=== PATIENT | female | born 1965 | race Caucasian/White ===

== ENCOUNTER 2018-01-04 16:27 | Emergency (ER) | payer SELFPAY ==
[2018-01-04] MEDS ORDERED: IBUPROFEN 100 MG/5 ML SUSP PO ONE (16:53)
--- NOTE | 2018-01-04 17:35 | Emergency Department Record ---
History of Present Illness - General Chief complaint: Pain Stated complaint: RT SIDE RIB PAIN Time Seen by Provider: 01/04/18 16:41 Source: Patient Mode of Arrival: Ambulatory Limitations: No limitations - History of Present Illness Initial comments: Pt with pain to right lower chest wall. No trauma or injury. Present for 3 days started toward the back no moving anterior. No fever, cough, skin lesion. No cough or TOMASZ, no hemoptysis, no left chest pains. No Hormone treatments, no cancer hx, recetn car trip of 300 miles with multiple stoprs thru trip with kids and dog. No hx DVT or clots. Pain is sharp and worse with motion, deep inspiration, and lifting left arm. No AP or diet intolerance. Onset/Timin -: Days(s) Location: Right History of Same: No Radiation: Proximal Severity scale (1-10): 5 Quality: Aching, Sharp Consistency: Intermittent Worsens with: Other Associated Symptoms: Denies other symptoms - Related Data Previous Rx's Medication Instructions Recorded Hydrocodone/Acetaminophen [Lortab 5 ml PO Q6HR 4 Days #120 ml 01/04/18 10mg/300mg/15ml] Allergies Allergy/AdvReac Type Severity Reaction Status Date / Time No Known Drug Allergies Allergy Verified 01/04/18 16:33 Travel Screening - Travel/Exposure Within Last 30 Days Have you traveled within the last 30 days?: No Review of Systems Constitutional: Denies: Chills, Fever, Weakness Eyes: Denies: Photophobia, Vision change ENT: Denies: Congestion, Ear pain Respiratory: Denies: Cough, Dyspnea, Wheezes Cardiovascular: Reports: As per HPI. Denies: Arrhythmia, Dyspnea on exertion, Palpitations Endocrine: Denies: Fatigue Gastrointestinal: Denies: Abdominal pain, Nausea, Vomiting Genitourinary: Denies: Abnormal menses Musculoskeletal: Reports: Arthralgia Skin: Denies: Bruising, Rash Neurological: Denies: Abnormal gait, Tremors Psychiatric: Denies: Anxiety Hematological/Lymphatic: Denies: Anemia Past Medical History - SOCIAL HISTORY Smoking Status: Never smoker Alcohol Use: None Drug Use: None - RESPIRATORY Hx Respiratory Disorders: Yes Hx Asthma: Yes - CARDIOVASCULAR Hx Cardio Disorders: No - NEURO Hx Neuro Disorders: No - GI Hx GI Disorders: No - Hx Genitourinary Disorders: No - ENDOCRINE Hx Endocrine Disorders: No - MUSCULOSKELETAL Hx Musculoskeletal Disorders: No - PSYCH Hx Psych Problems: No - HEMATOLOGY/ONCOLOGY Hx Hematology/Oncology Disorders: No Family Medical History Any Significant Family History?: No Physical Exam - General General Appearance: Alert, Oriented x3, Cooperative, No acute distress - Head Head exam: Atraumatic - Eye Eye exam: PERRL, EOMI - ENT ENT exam: Normal exam, Mucous membranes moist, Normal external ear exam, Normal orophraynx, TM's normal bilaterally - Neck Neck exam: Normal inspection. negative: Tenderness - Respiratory Respiratory exam: Normal lung sounds bilaterally, Chest wall tenderness (point tender to lower right ribs at anterior aspect. No skin lesions, no click or crepitance. ). negative: Rhonchi, Wheezes - Cardiovascular Cardiovascular Exam: Regular rate, Normal rhythm, Normal heart sounds - GI/Abdominal GI/Abdominal exam: Soft, Normal bowel sounds. negative: Rebound, Tenderness - Extremities Extremities exam: Normal inspection. negative: Full ROM, Normal capillary refill, Tenderness - Back Back exam: Reports: Normal inspection. Denies: CVA tenderness (R), CVA tenderness (L), Muscle spasm, Tenderness - Neurological Neurological exam: Alert, Normal gait, Oriented X3 - Psychiatric Psychiatric exam: Normal affect, Normal mood. negative: Anxious - Skin Skin exam: Normal color. negative: Rash Course Vital Signs 01/04/18 16:34 Temperature 98.7 F Pulse Rate [ 88 Pulse Ox Probe] Respiratory 18 Rate Blood Pressure 124/78 [Left Arm] Pulse Ox 97 - Reevaluation(s) Reevaluation #1: 01/04/18 18:08 XR and EKG normal. Rib pain/musculoskeletal. Discussed with pt. Agree withplan. [place] for bedtime only. Procedures - EKG Initial Date: 01/04/18 Time: 16:58 EKG: Normal EKG Disposition Disposition: Discharge Clinical Impression: Rib pain on right side, Back pain Disposition: Home, Self-Care Condition: (2) Stable Instructions: Back Pain (ED), Rib Contusion (ED) Additional Instructions: Take OTC Advil liquid 600mg every 6 hours. [place] at bedtime. Ice to back Follow with family doctor or Chiiropracter. Prescriptions: Hydrocodone/Acetaminophen [Lortab 10mg/300mg/15ml] 5 ml PO Q6HR 4 Days #120 ml Forms: Patient Portal Access Quality - Quality Measures Quality Measures: N/A - Blood Pressure Screening Does Patient Have Any of the Following: No Blood Pressure Classification: Pre-Hypertensive BP Reading Systolic Measurement: 124 Diastolic Measurement: 78 Screening for High Blood Pressure: < Pre-Hypertensive BP, F/U Documented > [ G8950] Pre-Hypertensive Follow-up Interventions: Follow-up with rescreen every year.
--- NOTE | 2018-01-07 09:35 | RADIOLOGY REPORT ---
EXAM: CHEST, TWO VIEWS HISTORY: RIGHT SIDED RIB PAIN. NO KNOWN INJURY. TECHNIQUE: PA and lateral upright views of the chest were obtained. Comparison: None. Encounter: Not applicable. FINDINGS: The heart, mediastinum, and pulmonary vasculature are normal. The lungs are clear. There is no pneumothorax or effusion. Mild degenerative changes are present within the spine. There are no acute osseous abnormalities. IMPRESSION: NO ACUTE CHEST PATHOLOGY. JOB [facility]BER: [id number] [facility]
== END 2018-01-04 18:38 | disposition home or self-care (01) ==
LOC: ER 16:27
DX: R07.81 Pleurodynia (principal); M54.9 Dorsalgia, unspecified
CPT/HCPCS: 71046; 93005; 93010; 99284

== ENCOUNTER 2019-02-14 12:35 | Emergency (ER) | payer OTHER ==
--- NOTE | 2019-02-14 12:55 | Emergency Department Record ---
History of Present Illness - General Chief Complaint: Fall Injury Stated Complaint: FALL/LT SIDE ,ARM PAIN Time Seen by Provider: 02/14/19 12:44 Source: Patient, Family Mode of Arrival: Ambulatory Limitations: No limitations - History of Present Illness Initial Comments: 53 yo female presents after a fall. She was walking her dog and the dog started to run pulling her down on her right side. No head injury. She has a superficial abrasion on the right cheek. No LOC. No blood thinners. She has pain over her right lower chest and right upper abdomen. She states it hurts to breath. She denies any significant pain in the abdomen. No pain with ambulation. MD Complaint: Fall -: Minutes(s) When Fall Occurred: Just prior to arrival Fall Witnessed: No Place Fall Occurred: Street Loss of Consciousness: None Prolonged Down Time?: No Symptoms Prior to Fall: None Location: Face Severity: Severe Quality: Aching Context: Tripped/slipped Associated Symptoms: Abdominal pain, Chest pain - [place] Coma Scale Eye Response: (4) Open spontaneously Motor Response: (6) Obeys commands Verbal Response: (5) Oriented [place] Total: 15 - Related Data Previous Rx's Medication Instructions Recorded Hydrocodone/Acetaminophen [[place]sa 1 tab PO Q6H PRN #12 tab 02/14/19 5mg/325mg] Allergies Allergy/AdvReac Type Severity Reaction Status Date / Time No Known Drug Allergies Allergy Verified 01/04/18 16:33 Review of Systems Constitutional: Denies: Chills, Fever, Malaise, Weakness Eyes: Denies: Eye discharge, Eye pain, Photophobia, Vision change ENT: Denies: Congestion, Throat pain Respiratory: Denies: Cough, Dyspnea Cardiovascular: Reports: As per HPI, Chest pain Endocrine: Denies: Fatigue, Polydipsia, Polyuria Gastrointestinal: Reports: As per HPI. Denies: Abdominal pain, Diarrhea, Nausea, Vomiting Genitourinary: Denies: Dysuria, Hematuria, Urgency Musculoskeletal: Reports: As per HPI, Arthralgia, Back pain, Myalgia, Neck pain Skin: Reports: Bruising. Denies: Change in color Neurological: Denies: Headache, Numbness, Tingling, Vertigo, Weakness Psychiatric: Denies: Anxiety Hematological/Lymphatic: Denies: Easy bleeding, Easy bruising Past Medical History - SOCIAL HISTORY Smoking Status: Never smoker Drug Use: None - RESPIRATORY Hx Respiratory Disorders: Yes Hx Asthma: Yes - CARDIOVASCULAR Hx Cardio Disorders: No - NEURO Hx Neuro Disorders: No - GI Hx GI Disorders: No - Hx Genitourinary Disorders: No - ENDOCRINE Hx Endocrine Disorders: No - MUSCULOSKELETAL Hx Musculoskeletal Disorders: No - PSYCH Hx Psych Problems: No - HEMATOLOGY/ONCOLOGY Hx Hematology/Oncology Disorders: No Physical Exam - General General Appearance: Alert, Oriented x3, Cooperative, No acute distress Limitations: No limitations - Head Head exam: Atraumatic, Normocephalic, Normal inspection Head exam detail: negative: Abrasion, Contusion, Hematoma, Laceration Image of Face/Head: 1 - slight superfical abrasion, non tender, no jaw pain with opening and closi ng, no pain with EOM - Eye Eye exam: Normal appearance, PERRL. negative: Conjunctival injection, Scleral icterus - ENT ENT exam: Normal exam, Mucous membranes moist Ear exam: Normal external inspection Nasal Exam: Normal inspection Mouth exam: Normal external inspection Teeth exam: Normal inspection Throat exam: Normal inspection - Neck Neck exam: Normal inspection, Full ROM, Tenderness. negative: Lymphadenopathy, Meningismus - Respiratory Respiratory exam: Normal lung sounds bilaterally, Chest wall tenderness. negative: Accessory muscle use, Decreased breath sounds, Prolonged expiratory, Respiratory distress, Rhonchi, Stridor, Wheezes - Cardiovascular Cardiovascular Exam: Regular rate, Normal rhythm, Normal heart sounds Peripheral Pulses: 2+: Radial (R), Radial (L) - GI/Abdominal GI/Abdominal exam: Soft, Tenderness (tender RUQ but soft, no abrasions) - Rectal Rectal exam: Deferred - exam: Deferred - Extremities Extremities exam: Normal inspection, Full ROM, Normal capillary refill. negative: Calf tenderness, Joint swelling, Pedal edema, Tenderness - Back Back exam: Reports: Normal inspection, CVA tenderness (R), Muscle spasm, Para spinal tenderness, Tenderness, Vertebral tenderness. Denies: CVA tenderness (L), Rash noted - Neurological Neurological exam: Alert, CN II-XII intact, Oriented X3. negative: Altered, Motor sensory deficit - Psychiatric Psychiatric exam: Normal affect, Normal mood. negative: Agitated, Anxious - Skin Skin exam: Abrasion Course - Reevaluation(s) Reevaluation #1: 02/14/19 15:[address] scans of the cervical, chest and abdomen were reviewed. No acute injuries. The CT scan did not demonstrate any obvious injuries today The radiologist listed several findings for follow up with your family doctor 1. Irregularly shaped gall bladder. Recommend follow up ultrasound 2. Ovarian Cyst on the left. Recommend follow up ultrasound 3. Right lung nodule. Recommend 12 month follow up Disposition Disposition: Discharge Clinical Impression: Contusion of rib on right side Qualifiers: Encounter type: initial encounter Qualified Code(s): S20.211A - Contusion of right front wall of thorax, initial encounter Disposition: Home, Self-Care Condition: (1) Good Instructions: Contusion in Adults (ED) Additional Instructions: The CT scan did not demonstrate any obvious injuries today The radiologist listed several findings for follow up with your family doctor 1. Irregularly shaped gall bladder. Recommend follow up ultrasound 2. Ovarian Cyst on the left. Recommend follow up ultrasound 3. Right lung nodule. Recommend 12 month follow up Review all the final reports with your doctor Return to the ER if you have any increase in pain or any new pain that is a concern Prescriptions: Hydrocodone/Acetaminophen [[place] 5mg/325mg] 1 tab PO Q6H PRN #12 tab PRN Reason: Pain - General Forms: Patient Portal Access Time of Disposition: 15:14 Quality - Quality Measures Quality Measures: N/A - Blood Pressure Screening Does Patient Have Any of the Following: No Blood Pressure Classification: Pre-Hypertensive BP Reading Systolic Measurement: 141 Diastolic Measurement: 86 Screening for High Blood Pressure: < Pre-Hypertensive BP, F/U Documented > [G8950] Pre-Hypertensive Follow-up Interventions: Referral to alternative/primary care provider.
[2019-02-14] MEDS: ONDANSETRON HCL IV 4 MG/2 ML VIAL IVP ONE (13:11)
[2019-02-14] MEDS: MORPHINE SULFATE 5 MG/ML VIAL IVP ONE (13:11)
[2019-02-14] MEDS: 0.9 % SODIUM CHLORIDE 1000ML 1,000 ML IV ONE (13:12)
--- NOTE | 2019-02-14 19:12 | CT SCAN REPORT ---
EXAM: CT SCAN CERVICAL SPINE WO CONTRAST HISTORY: POSTERIOR NECK PAIN POST FALL. TECHNIQUE: Thin collimation helical CT examination of the cervical spine is performed in the axial plane without intravenous contrast. Coronal and sagittal reformatted images are generated and reviewed. COMPARISON: No prior imaging of the cervical spine available for comparison. Same-day contrast-enhanced CT of the chest. FINDINGS: There is normal bone mineralization. There is straightening of the normal cervical lordosis likely due to positioning or muscle spasm. The vertebral bodies are otherwise normal in alignment and height. No acute fracture, destructive bone lesion, or prevertebral soft tissue swelling. Minimal hypertrophic change of the atlantodental joint is present. There are degenerative disc/endplate changes at the mid and lower cervical levels most pronounced at the C6-C7 level where there is exuberant posterior marginal endplate spurring and partial calcification of the posterior longitudinal ligament causing ventral sac flattening and possible mild central canal stenosis. Posterior disc bulging versus broad-based disc protrusion at the C5-C6 level is also suspected causing mild central canal stenosis. No other definite evidence of central canal stenosis. Mild bilateral neural foraminal narrowing is present at the C5-C6 and C6-C7 levels due to uncovertebral joint spurring. The neural foramina are otherwise patent. There is an impacted/unerupted right mandibular wisdom tooth. The neck soft tissues are without suspicious mass or adenopathy. There is a nonenlarged deep cervical chain lymph node on the left measuring 7 mm in short axis diameter. This is likely reactive. IMPRESSION: 1. NO ACUTE FRACTURE, SUBLUXATION, OR PREVERTEBRAL SOFT TISSUE SWELLING. 2. STRAIGHTENING OF THE NORMAL CERVICAL LORDOSIS LIKELY DUE TO POSITIONING OR MUSCLE SPASM. 3. DEGENERATIVE DISC/DEGENERATIVE ENDPLATE CHANGES MOST PRONOUNCED AT THE C5-C6 AND C6-C7 LEVELS WHERE THERE IS LIKELY MILD CENTRAL CANAL STENOSIS. JOB NUMBER: [id number] [facility]
--- NOTE | 2019-02-14 19:47 | CT SCAN REPORT ---
EXAM: CT SCAN CHEST W CONTRAST HISTORY: RIGHT RIB PAIN POST FALL. TECHNIQUE: Contrast-enhanced helical CT examination of the chest, abdomen, and pelvis is performed with 100 mL of Omnipaque-[address] see separate CT abdomen and pelvis report. COMPARISON: Same-day noncontrast CT of the cervical spine. Same-day CT abdomen examination. FINDINGS: The heart is normal in size. The thoracic aorta is normal in caliber and without dissection. The arch branch vessels are widely patent. No mediastinal or hilar mass/lymphadenopathy is seen. No evidence of mediastinal hematoma. There is a small sliding-type hiatal hernia. The wall of the intrathoracic portion of the stomach and the wall of the distal esophagus appear mildly prominent in thickness. This likely relates to incomplete distention though a mucosal abnormality is not entirely excluded and if clinically warranted, this could be further evaluated with direct visualization or fluoroscopic barium examination. The central airways are clear. Minor linear scarring versus atelectasis is present in the lateral right lung base and anterior lung bases. No lung consolidation, pleural effusion, pericardial effusion, or pneumothorax. There is a small nodule in the anterior aspect of the left upper lobe measuring 4.3 mm. This is centrally calcified and is consistent with a healing granuloma. There is a tiny perifissural nodule likely within the superior aspect of the right middle lobe contiguous with the minor fissure. This is likely postinflammatory. The lungs are otherwise clear. No lytic or blastic bone lesion. Mild degenerative endplate changes are scattered within the visualized spine. No convincing acute osseous fracture. IMPRESSION: 1. NO CT EVIDENCE OF AN ACUTE INTRATHORACIC PROCESS NOR DEFINITE ACUTE OSSEOUS FRACTURE. 2. HEALING GRANULOMA WITHIN THE ANTERIOR ASPECT OF THE LEFT UPPER LOBE. TINY PERIFISSURAL NODULE WITHIN THE RIGHT MIDDLE LOBE MEASURING 2 MM. IN A LOW RISK PATIENT, NO ROUTINE FOLLOW-UP IS NECESSARY. OTHERWISE, FOLLOW-UP CT CHEST IN 12 MONTHS IS RECOMMENDED. 3. SMALL HIATAL HERNIA. APPARENT MILD WALL THICKENING OF THE INTRATHORACIC PORTION OF THE STOMACH AND THE DISTAL ESOPHAGEAL WALL. THIS MAY JUST RELATE TO INCOMPLETE DISTENTION THOUGH A MUCOSAL ABNORMALITY CANNOT BE EXCLUDED. 4. THERE IS SUBTLE ASYMMETRIC SOFT TISSUE DENSITY IN THE LATERAL ASPECT OF THE RIGHT BREAST RELATIVE TO THE VISUALIZED LEFT BREAST LIKELY RELATING TO ASYMMETRIC FIBROGLANDULAR TISSUE RATHER THAN CONTUSION OR MASS. CORRELATION WITH RECENT MAMMOGRAPHIC EXAMINATION IS RECOMMENDED. JOB NUMBER: [id number] [facility]
--- NOTE | 2019-02-14 20:06 | CT SCAN REPORT ---
EXAM: CT SCAN ABDOMEN/PELVIS W CONTRAST HISTORY: RIGHT RIB AND RIGHT UPPER QUADRANT ABDOMINAL PAIN POST FALL. TECHNIQUE: Contrast-enhanced helical CT examination of the chest, abdomen, and pelvis is performed with 100 mL of Omnipaque-[address] utilized. Please see separate CT chest report. COMPARISON: No prior imaging of the abdomen and pelvis available for comparison. Ultrasound of the kidneys dated 10/28/2018. Pelvic ultrasound dated 12/20/2018. FINDINGS: There is a small hiatal hernia. The wall of the intrathoracic portion of the stomach and the distal esophagus appear mildly prominent in thickness likely due to incomplete distention though a mucosal abnormality is not entirely excluded. Minor linear scarring versus atelectasis within the anterolateral right base and anterior left base. No pleural or pericardial effusion. A too small to characterize hypodense focus is demonstrated in the superior right liver lobe best seen on image 16 of 121. A similar tiny focus is suggested within the central posterior segment of the right liver lobe as seen on image 21. These are nonspecific but in the absence of known liver disease and absence of known malignancy, are likely cysts or hemangiomata. The liver is otherwise normal in appearance. There is a somewhat unusual configuration of the gallbladder appearing somewhat bilobed with a small amount of calcification at the apparent "waist". This may just relate to a benign gallbladder fold though other etiologies are not excluded. Further evaluation with ultrasound examination may be of benefit. The central biliary tree appears borderline to mildly prominent with the common hepatic duct measuring 11 mm. Correlation with serum bilirubin and alkaline phosphatase levels is recommended as there is no evidence of an obstructing common duct lesion. The pancreas, spleen, and adrenal glands are normal in appearance. The proximal renal collecting systems are mildly patulous without delay in excretion of contrast. This likely is developmental. The kidneys are otherwise normal in appearance. No intra-abdominal nor retroperitoneal lymphadenopathy. There is minimal atherosclerosis of the abdominal aorta without aneurysmal dilatation. The vasculature is otherwise unremarkable. There is a dominant cystic structure arising from the left ovary measuring 2.8 x 3.4 cm. A similar size cystic structure is noted on prior pelvic ultrasound dated 12/20/2018. This is not a simple cyst on prior ultrasound with a peripheral nodule versus debris present. Continued sonographic surveillance is recommended. There is otherwise no evidence of pelvic mass or adenopathy. No intrinsic urinary bladder abnormality. No ascites nor free intraperitoneal air. No gross bowel dilatation or bowel wall thickening. The appendix is visualized and normal in appearance. No lytic or blastic bone lesion. There are degenerative changes scattered within the visualized spine. There is a small fat-filled umbilical hernia appearing uncomplicated. IMPRESSION: 1. NO CT EVIDENCE OF ACUTE VISCERAL INJURY NOR CONVINCING ACUTE OSSEOUS FRACTURE. 2. NOT MENTIONED ABOVE IS SLIGHT ASYMMETRIC DENSITY WITHIN THE LATERAL RIGHT BREAST RELATIVE TO THE VISUALIZED LEFT BREAST. THIS LIKELY IS BENIGN ASYMMETRIC FIBROGLANDULAR TISSUE RATHER THAN THE RESULT OF CONTUSION OR NEOPLASTIC PROCESS. CORRELATION WITH RECENT MAMMOGRAPHIC EXAMINATION IS RECOMMENDED. 3. UNUSUAL BILOBED APPEARANCE OF THE GALLBLADDER WITH POSSIBLE MINIMAL WALL CALCIFICATION. FURTHER EVALUATION WITH ABDOMINAL ULTRASOUND IS RECOMMENDED. MILDLY PROMINENT CENTRAL BILIARY TREE WITHOUT OBSTRUCTING LESION. CORRELATION WITH SERUM BILIRUBIN AND ALKALINE PHOSPHATASE LEVELS RECOMMENDED. 4. THE RENAL COLLECTING SYSTEMS APPEAR SOMEWHAT PATULOUS WITHOUT DEFINITE OBSTRUCTING LESION. THIS IS LIKELY DEVELOPMENTAL. 5. CYSTIC STRUCTURE MEASURING 3.4 CM ARISING FROM THE LEFT OVARY, DISCUSSED ABOVE. JOB NUMBER: [id number] [facility]
== END 2019-02-14 15:35 | disposition home or self-care (01) ==
LOC: ER 12:35
DX: S20.211A Contusion of right front wall of thorax, initial encounter (principal); S00.81XA Abrasion of other part of head, initial encounter; N83.201 Unspecified ovarian cyst, right side; R91.1 Solitary pulmonary nodule; M54.2 Cervicalgia; W01.198A Fall on same level from slipping, tripping and stumbling with subsequent striking against other object, initial encounter; Y93.K1 Activity, walking an animal; Y92.410 Unspecified street and highway as the place of occurrence of the external cause
CPT/HCPCS: 99284 ×2; 96374; 96375; 72125; 71260; 74177; Q9967; J2405; J7030

== ENCOUNTER 2019-04-02 08:16 | Emergency (ER) | payer OTHER ==
--- NOTE | 2019-04-02 08:45 | Emergency Department Record ---
History of Present Illness - General Chief complaint: Flank Pain Stated complaint: POSS KIDNEY INFECTION Time Seen by Provider: 04/02/19 08:26 Source: Patient, RN notes reviewed Mode of Arrival: Ambulatory - History of Present Illness Initial comments: yesterday left back pain which started yesterday in the lumbar spine area. PSH mar 13 had ovary and GB and umbilical hernia surgery at [facility] with Dr Reece and Dr Dempsey . She had cysts on the left ovary and gall stones. 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 Right knee surgery 6-8 years ago. Patient admits to stress with because he has seizures. The left lumbar pain is worse with moving around good knee reflexes. Onset/Timin -: Days(s) Radiation: L flank - Related Data Previous Rx's Medication Instructions Recorded Cyclobenzaprine HCl [Flexeril] 10 mg PO TID #30 tablet 04/02/19 Naproxen [Naprosyn] 500 mg PO Q12H #30 tab. 04/02/19 Allergies Allergy/AdvReac Type Severity Reaction Status Date / Time No Known Drug Allergies Allergy Verified 01/04/18 16:33 Travel Screening - Travel/Exposure Within Last 30 Days Have you traveled within the last 30 days?: No - Travel/Exposure Within Last Year Have you traveled outside the [place] in the last year?: No - Additonal Travel Details Have you been exposed to anyone with a communicable illness?: No Review of Systems Reviewed: No additional complaints except as noted below Constitutional: Reports: As per HPI. Denies: Chills, Fever, Malaise, Night sweats, Weakness, Weight change Eyes: Reports: As per HPI. Denies: Eye discharge, Eye pain, Photophobia, Vision change ENT: Reports: As per HPI. Denies: Congestion, Dental pain, Ear pain, Epistaxis, Hearing loss, Throat pain Respiratory: Reports: As per HPI. Denies: Cough, Dyspnea, Hemoptysis, Stridor, Wheezes Cardiovascular: Reports: As per HPI. Denies: Arrhythmia, Chest pain, Dyspnea on exertion, Edema, Murmurs, Orthopnea, Palpitations, Paroxysmal nocturnal dyspnea, Rheumatic Fever, Syncope Endocrine: Reports: As per HPI. Denies: Fatigue, Heat or cold intolerance, Polydipsia, Polyuria Gastrointestinal: Reports: As per HPI, Other (left lumbar spine pain). Denies: Abdominal pain, Constipation, Diarrhea, Hematemesis, Hematochezia, Melena, Nausea, Vomiting Genitourinary: Reports: As per HPI. Denies: Abnormal menses, Discharge, Dyspareunia, Dysuria, Frequency, Hematuria, Incontinence, Retention, Urgency Musculoskeletal: Reports: As per HPI. Denies: Arthralgia, Back pain, Gout, Joint swelling, Myalgia, Neck pain Skin: Reports: As per HPI. Denies: Bruising, Change in color, Change in hair/nails, Lesions, Pruritus, Rash Neurological: Reports: As per HPI. Denies: Abnormal gait, Confusion, Headache, Numbness, Paresthesias, Seizure, Tingling, Tremors, Vertigo, Weakness Psychiatric: Reports: As per HPI. Denies: Anxiety, Auditory hallucinations, Depression, Homicidal thoughts, Suicidal thoughts, Visual hallucinations Hematological/Lymphatic: Reports: As per HPI. Denies: Anemia, Blood Clots, Easy bleeding, Easy bruising, Swollen glands Past Medical History - SOCIAL HISTORY Smoking Status: Never smoker Alcohol Use: None Drug Use: None - RESPIRATORY Hx Respiratory Disorders: Yes Hx Asthma: Yes - CARDIOVASCULAR Hx Cardio Disorders: No - NEURO Hx Neuro Disorders: No - GI Hx GI Disorders: No - Hx Genitourinary Disorders: No - ENDOCRINE Hx Endocrine Disorders: No - MUSCULOSKELETAL Hx Musculoskeletal Disorders: No - PSYCH Hx Psych Problems: No - HEMATOLOGY/ONCOLOGY Hx Hematology/Oncology Disorders: No Family Medical History Any Significant Family History?: No Physical Exam - General General Appearance: Alert, Oriented x3, Cooperative, No acute distress - Head Head exam: Normal inspection - Eye Eye exam: Normal appearance, PERRL Pupils: Normal accommodation - ENT ENT exam: Normal exam, Mucous membranes moist, Normal external ear exam, Normal orophraynx, TM's normal bilaterally Ear exam: Normal external inspection. negative: External canal tenderness Nasal Exam: Normal inspection. negative: Discharge, Sinus tenderness Mouth exam: Normal external inspection, Tongue normal Teeth exam: Normal inspection. negative: Dental caries Throat exam: Normal inspection. negative: Tonsillar erythema, Tonsillar exudate - Neck Neck exam: Normal inspection, Full ROM. negative: Tenderness - Respiratory Respiratory exam: Normal lung sounds bilaterally. negative: Respiratory distress - Cardiovascular Cardiovascular Exam: Regular rate, Normal rhythm, Normal heart sounds - GI/Abdominal GI/Abdominal exam: Soft, Normal bowel sounds. negative: Tenderness - Rectal Rectal exam: Deferred - exam: Deferred - Extremities Extremities exam: Normal inspection, Full ROM, Normal capillary refill. negative: Tenderness - Back Back exam: Reports: Normal inspection, Muscle spasm, Tenderness. Denies: Rash noted - Neurological Neurological exam: Alert, Normal gait, Oriented X3, Reflexes normal - Psychiatric Psychiatric exam: Normal affect, Normal mood - Skin Skin exam: Dry, Intact, Normal color, Warm Course Vital Signs 04/02/19 08:19 Temperature 98.7 F Pulse Rate 71 Respiratory 20 Rate Blood Pressure 140/80 Pulse Ox 97 - Reevaluation(s) Reevaluation #1: incision on the umbilicus looks good and no pain on palpation and no warmth there and patient said she has had her follow up with the surgeons and they are done with her. explained to her the lumbar spine pain is muscular and will treat with flexeril and naprosyn and will need to follow up with Dr Cornelius to follow the fluid in the umbilicus area. 04/02/19 10:14 Medical Decision Making - Data Complexity MDM Data: Labs Ordered and/or Reviewed (WBC 5,900), X-Ray Ordered and/or Reviewed (CT scan with collection of fluid by umbilicus with inflamation. No obstructing kidney stones) - Lab Data Result diagrams: 04/02/19 08:25 04/02/19 08:25 Disposition Clinical Impression: Abnormal CT of the abdomen Lumbar strain Qualifiers: Encounter type: initial encounter Qualified Code(s): S39.012A - Strain of muscle, fascia and tendon of lower back, initial encounter Disposition: Home, Self-Care Condition: (1) Good Instructions: Low Back Strain (ED) Additional Instructions: heat to back three times a day follow up with Dr Cornelius next week Prescriptions: Cyclobenzaprine HCl [Flexeril] 10 mg PO TID #30 tablet Naproxen [Naprosyn] 500 mg PO Q12H #30 tab. Forms: Patient Portal Access Time of Disposition: 10:24 Quality - Quality Measures Quality Measures: N/A - Blood Pressure Screening Does Patient Have Any of the Following: No Blood Pressure Classification: Pre-Hypertensive BP Reading Systolic Measurement: 140 Diastolic Measurement: 80 Screening for High Blood Pressure: < Pre-Hypertensive BP, F/U Documented > [ [id number]] Pre-Hypertensive Follow-up Interventions: Referral to alternative/primary care provider.
[2019-04-02] MEDS ORDERED: KETOROLAC 30 MG/ML VIAL IVP ONE (08:48)
[2019-04-02] MEDS ORDERED: 0.9 % SODIUM CHLORIDE 1,000 ML BAG IV ONE (08:50)
[2019-04-02] MEDS ORDERED: LORAZEPAM 2 MG/ML VIAL IV ONE (09:01)
[2019-04-02 09:06] LABS: ABSOLUTE NEUTROPHIL COUNT 2.83; BASO % 0.5 % (0-6); GRAN % 47.8 % (47-80); HEMOGLOBIN 14.4 gm/dl (11.6-16.0); LYMPH % 37.9 % (16-45); MEAN CELL VOLUME 92.4 fl (81-97); MEAN CORPUSCULAR HEMOGLOBIN 29.6 pg (27-33); MEAN PLATELET VOLUME 11.9 fl (7.4-10.4); MONO % 10.8 % (0-9); PLATELET COUNT 225 K/uL (130-400); RED BLOOD COUNT 4.87 M/uL (3.80-5.40); RED CELL DISTRIBUTION WIDTH 12.9 % (11.5-14.5); WHITE BLOOD COUNT W/O DIFF 5.9 K/uL (4.2-12.2)
[2019-04-02 09:15] LABS: BLOOD UREA NITROGEN 7 mg/dL (6-20); CREATININE 0.6 mg/dL (0.5-0.9); EST GLOMERULAR FILTRATION RATE > 60 mL/min
[2019-04-02 09:16] LABS: LIPASE 18 U/L (13-60); TOTAL PROTEIN 7.1 g/dL (6.6-8.7)
[2019-04-02 09:18] LABS: GLUCOSE,RANDOM 106 mg/dL (74-109)
[2019-04-02 09:20] LABS: ALT/SGPT 24 U/L (<33); AST/SGOT 19 U/L (10.0-35.0)
[2019-04-02 09:21] LABS: ALBUMIN 4.4 g/dL (4.0-5.0); ALKALINE PHOSPHATASE 85 U/L (35-104)
[2019-04-02 09:23] LABS: BILIRUBIN,DIRECT < 0.2 mg/dL (0-0.3)
[2019-04-02 09:50] LABS: URINE APPEARANCE CLEAR; URINE BILIRUBIN NEGATIVE (NEGATIVE); URINE BLOOD NEGATIVE (NEGATIVE); URINE COLOR YELLOW; URINE GLUCOSE (UA) NEGATIVE (NEGATIVE); URINE KETONE NEGATIVE (NEGATIVE); URINE LEUKOCYTE ESTERASE NEGATIVE (NEGATIVE); URINE NITRITE NEGATIVE (NEGATIVE); URINE PROTEIN NEGATIVE (NEGATIVE); URINE UROBILINOGEN 0.2 E.U./dL (0.20 - 1.00)
--- NOTE | 2019-04-02 09:53 | CT SCAN REPORT ---
EXAMINATION: CT Abdomen and Pelvis without IV Contrast EXAM DATE: 04/02/2019 9:30 AM TECHNIQUE: Standard protocol CT imaging of the abdomen and pelvis was performed without intravenous c ontrast. INDICATION: left flank pain COMPARISON: 02/14/2019 ENCOUNTER: Not applicable CT ABDOMEN AND PELVIS FINDINGS: Lung Bases: Included extent of the lung bases are clear. Hepatobiliary: The liver has a normal size with a smooth surface. Interval cholecystectomy Pancreas: The pancreas is normal. Spleen: The spleen is not enlarged. Adrenals: The adrenal glands are normal. Kidneys, Ureters, & Bladder: Punctate nonobstructing lower pole right renal calculus. Stable bilatera l pelvocaliectasis. Both ureters have a normal course and caliber and the urinary bladder a normal mo rphology and uniform wall thickness. No ureteral or bladder calculi are identified. Gastrointestinal: Moderate hiatal hernia. Appendix not visualized. Mild sigmoid diverticulosis. No di verticulitis Reproductive Organs: Retroverted uterus Lymphatic System: There is no adenopathy within the abdomen or pelvis. Vasculature: Normal caliber abdominal aorta Peritoneum: No free fluid, free air, or inflammation Abdominal wall & Musculoskeletal: No suspicious bone lesions. Degenerative change LS-spine. Umbilical inflammatory changes. 2.4 x 2 cm umbilical air-fluid collection concerning for abscess. Assessment of the solid organs, soft tissues, and vascular structures is overall limited on noncontra st imaging, IMPRESSION: 1. 2.4 x 2 cm umbilical air-fluid collection with surrounding inflammation concerning for abscess 2. Interval cholecystectomy 3. Punctate nonobstructing lower pole right renal calculus 4. Stable bilateral renal pelvocaliectasis 5. Retroverted uterus 6. Sigmoid diverticulosis Dictated by: Ruddy Alonso MD on 04/02/2019 9:32 AM. .
== END 2019-04-02 10:52 | disposition home or self-care (01) ==
LOC: ER 08:16
DX: S39.012A Strain of muscle, fascia and tendon of lower back, initial encounter (principal); Z98.890 Other specified postprocedural states; X58.XXXA Exposure to other specified factors, initial encounter
CPT/HCPCS: 74176; 80048; 80076; 81003; 83690; 85025; 96374; 96375; 99284; J1885; J7030